=== PATIENT | male | born 1945 | race Caucasian/White ===

== ENCOUNTER 2024-10-14 09:49 | Inpatient (IN) | payer MEDICARE ==
[2024-10-14] VITALS (8 sets, daily range): PULSE 65–78; RESP 16–20; O2SAT 93–100
[~2024-10-14] VITALS: Ht 175.3 cm; Wt 80.4 kg
[~2024-10-14 09:49] MED LIST: CHOLESTEROL PO; [UNRECOGNIZED DRUG - REMARK] PO; [UNRECOGNIZED DRUG - REMARK] PO
[2024-10-14] MEDS ORDERED: 0.9% SODIUM CHLORIDE 10 ML SYRINGE IVP PRN (10:15)
[2024-10-14] MEDS: SODIUM CHLORIDE 0.9% 1,000 ML IV ONE (10:31)
[2024-10-14] MEDS: MethylPREDNISolone SOD SUCC 125 MG/2 ML VIAL IVP ONE (10:32)
[2024-10-14] MEDS: ACETAMINOPHEN 1000 MG/ISO-OSM 100 ML IV ONE (10:32)
[2024-10-14 11:00] LABS: BASOPHILS % (AUTO) 0.3 % (0.0-2.0); EOSINOPHILS % (AUTO) 0.1 % (1.0-6.0); HEMATOCRIT 39.7 % (41-53); HEMOGLOBIN 13.9 g/dL (13.5-17.5); LYMPHOCYTES # (AUTO) 0.2 K/uL (1.0-4.8); LYMPHOCYTES % (AUTO) 23.8 % (22.0-44.0); MEAN CORPUSCULAR HEMOGLOBIN 36.8 pg (26.0-34.0); MEAN CORPUSCULAR HGB CONC 35.1 G/dL (31.0-37.0); MEAN CORPUSCULAR VOLUME 105 fL (80-100); MONOCYTES # (AUTO) 0.1 K/uL (0.1-1.0); MONOCYTES % (AUTO) 6.7 % (2.0-9.0); NEUTROPHILS # (AUTO) 0.7 K/uL (1.8-7.7); NEUTROPHILS % (AUTO) 69.1 % (40.0-70.0); PLATELET COUNT (AUTO) 195 K/uL (150-450); RED BLOOD CELL COUNT(AUTO) 3.79 MIL/uL (4.50-5.90); RED CELL DISTRIBUTION WIDTH 14.6 % (11.5-14.5)
[2024-10-14] MEDS: IPRATROPIUM BROMIDE 0.5 MG/2.5 ML NEB SOLUTION NEB ONE (11:00)
[2024-10-14] MEDS: ALBUTEROL SULFATE 2.5 MG/0.5 ML NEB SOLUTION NEB ONE (11:00)
[2024-10-14 11:01] LABS: ANION GAP 9 mmol/L (8-16); CALCIUM, TOTAL 9.2 mg/dL (8.8-10.5); CARBON DIOXIDE 28 mmol/L (22-29); CHLORIDE 94 mmol/L (98-107); CREATININE 1.89 mg/dL (0.60-1.30); GLOMERULAR FILTR. RATE CALC 35 mL/min (>60); GLUCOSE,RANDOM 87 mg/dL (70-110); POTASSIUM 4.3 mmol/L (3.5-5.1); SODIUM SERUM 131 mmol/L (136-145); UREA NITROGEN, BLOOD 22 mg/dL (7-18)
[2024-10-14 11:06] LABS: ABG A-A DIFF O2 593.8 mmHg (10-20.0); ABG BASE EXCESS -1.5 mmol/L (-2.0-3.0); ABG CARBOXYHEMOGLOBIN 1.1 % (0.5-1.5); ABG HCO3 23.9 mmol/L (21.0-28.0); ABG METHEMOGLOBIN 0.9 % (0.0-1.5); ABG OXYGEN CONTENT 17.7 mL/dL (15.0-23.0); ABG OXYGEN SATURATION 96.9 % (94.0-98.0); ABG PCO2 32 mmHg (32.0-48.0); ABG PH 7.459 (7.350-7.450); ABG TOTAL HEMOGLOBIN 13.2 G/dL (13.5-17.5); ALLEN TEST, BLOOD GAS Positive; O2 DEVICE,BLOOD GAS NON REBREATHER (ROOM AIR); SITE, BLOOD GAS RT RADIAL; SOURCE, BLOOD GAS ARTERIAL; TEMPERATURE, FAHRENHEIT, BG 98.6 FAHREN (96.0-98.6)
[2024-10-14 11:11] LABS: TROPONIN I-HIGH SENSITIVITY 10 ng/L (<76)
[2024-10-14] MEDS: CefTRIAXone 1 GM/DEXTROSE 50 ML IV ONE (11:16)
[2024-10-14 11:21] LABS: LACTIC ACID 2.2 mmol/L (0.4-2.0)
[2024-10-14 11:22] LABS: B-TYPE NATRIURETIC PEPTIDE 39 pg/mL (0-100)
[2024-10-14 11:24] LABS: ALANINE AMINOTRANSFERASE 46 U/L (12-78); ALBUMIN 3.5 g/dL (3.4-5.0); ALKALINE PHOSPHATASE 47 U/L (46-116); ASPARTATE AMINOTRANSFERASE 89 U/L (15-37); BILIRUBIN,TOTAL 1.5 mg/dL (0.1-1.0)
[2024-10-14 11:32] LABS: CREATINE KINASE, TOTAL ONLY 2496 U/L (39-308); RBC MORPHOLOGY COMMENT ABNORMAL RBC MORPH
[2024-10-14] MEDS: AZITHROMYCIN 500 MG/NS 250 ML IV ONE (11:45)
[2024-10-14 12:55] LABS: COVID AG,FIA SOURCE NASAL SWAB
[2024-10-14] MEDS ORDERED: NOREPINEPHRINE 8 MG/0.9 % NACL 250 ML IV ONE (13:01)
[2024-10-14] MEDS: NOREPINEPHRINE 8 MG/0.9 % NACL 250 ML IV PRN (13:20)
[2024-10-14 13:22] LABS: SARS-COV2 (COVID) ANTIGEN,FIA Negative (Negative)
[2024-10-14] MEDS: ACETYLCYSTEINE 10% 100 MG/ML 4 ML NEB SOLUTION NEB SCH (14:23)
[2024-10-14] MEDS: IPRATROPIUM BROMIDE 0.5 MG/2.5 ML NEB SOLUTION NEB SCH (14:23)
[2024-10-14] MEDS: ALBUTEROL SULFATE 2.5 MG/0.5 ML NEB SOLUTION NEB SCH (14:23)
[2024-10-14] MEDS ORDERED: MAGNESIUM HYDROXIDE SUSPENSION 30 ML UDCUP PO PRN (16:00)
[2024-10-14] MEDS ORDERED: ONDANSETRON HCL 4 MG/2 ML VIAL IVP PRN (16:00)
[2024-10-14] MEDS ORDERED: HYDROCODONE/ACETAMINOPHEN 5-325 MG TABLET PO PRN (16:00)
[2024-10-14] MEDS ORDERED: ALBUTEROL SULFATE 2.5 MG/0.5 ML NEB SOLUTION NEB PRN (16:00)
[2024-10-14] MEDS ORDERED: MORPHINE SULFATE 2 MG/ML SYRINGE IVP PRN (16:00)
[2024-10-14] MEDS ORDERED: ZOLPIDEM TARTRATE 5 MG TABLET PO PRN (16:00)
[2024-10-14] MEDS ORDERED: IPRATROPIUM BROMIDE 0.5 MG/2.5 ML NEB SOLUTION NEB PRN (16:00)
[2024-10-14] MEDS: MethylPREDNISolone SOD SUCC 125 MG/2 ML VIAL IVP SCH (17:13)
[2024-10-14] MEDS: HEPARIN SODIUM,PORCINE 5,000 UNITS/ML VIAL SQ SCH (17:14)
[2024-10-14] MEDS ORDERED: ROCURONIUM BROMIDE 10 MG/ML 5 ML VIAL ONE (17:16)
[2024-10-14] MEDS ORDERED: ETOMIDATE 2 MG/ML 10 ML VIAL ONE (17:16)
[2024-10-14] MEDS: PROPOFOL 1000 MG/ISO-OSM 100 ML IV PRN (18:16)
[2024-10-14 19:17] LABS: ABG BASE EXCESS -4.6 mmol/L (-2.0-3.0); ABG CARBOXYHEMOGLOBIN 0.2 % (0.5-1.5); ABG HCO3 21.3 mmol/L (21.0-28.0); ABG OXYGEN CONTENT 17.6 mL/dL (15.0-23.0); ABG OXYGEN SATURATION 99.9 % (94.0-98.0); ABG OXYHEMOGLOBIN 98.7 % (94.0-98.0); ABG PCO2 34 mmHg (32.0-48.0); ABG PH 7.395 (7.350-7.450); ABG TOTAL HEMOGLOBIN 12.3 G/dL (13.5-17.5); PO2, ARTERIAL BG 233.6 mmHg (83.0-108.0); SOURCE, BLOOD GAS ARTERIAL; TEMPERATURE, FAHRENHEIT, BG 98.6 FAHREN (96.0-98.6)
[2024-10-14 19:18] LABS: ALLEN TEST, BLOOD GAS Positive; O2 DEVICE,BLOOD GAS VENTILATOR (ROOM AIR); PEEP,BG 5 cm H2O; SITE, BLOOD GAS LFT RADIAL; SPONTANEOUS VT, BG 463 ml; VT, ABG 450 ml
[2024-10-14] MEDS: DOCUSATE SODIUM 100 MG CAPSULE PO SCH (20:42)
[2024-10-15] VITALS (27 sets, daily range): BP systolic 101–121; BP diastolic 73–93; PULSE 66–98; RESP 16–19; TEMP 97.7–97.8; O2SAT 92–100
[2024-10-15] MEDS: FentaNYL CIT 1000MCG/0.9% NACL 100 ML IV PRN ×2 (05:22→15:48)
[2024-10-15] MEDS ORDERED: PROPOFOL 1000 MG/ISO-OSM 100 ML IV PRN (06:00)
[2024-10-15] MEDS ORDERED: FentaNYL CIT 1000MCG/0.9% NACL 100 ML IV PRN (06:00)
[2024-10-15 06:33] LABS: HEMATOCRIT 35.2 % (41-53); HEMOGLOBIN 12.5 g/dL (13.5-17.5); MEAN CORPUSCULAR HEMOGLOBIN 36.8 pg (26.0-34.0); MEAN CORPUSCULAR HGB CONC 35.5 G/dL (31.0-37.0); MEAN CORPUSCULAR VOLUME 104 fL (80-100); PLATELET COUNT (AUTO) 189 K/uL (150-450); RED BLOOD CELL COUNT(AUTO) 3.39 MIL/uL (4.50-5.90); RED CELL DISTRIBUTION WIDTH 14.3 % (11.5-14.5); WHITE BLOOD COUNT (AUTO) 5.9 K/uL (4.5-11.0)
[2024-10-15 06:42] LABS: CALCIUM, TOTAL 8.4 mg/dL (8.8-10.5); CREATININE 1.59 mg/dL (0.60-1.30); POTASSIUM 3.6 mmol/L (3.5-5.1)
[2024-10-15 08:00] LABS: BAND NEUTROPHILS % (MANUAL) 3 % (0-5); EOSINOPHILS % (MANUAL) 1 % (1-6); LYMPHOCYTES % (MANUAL) 9 % (22-44); MONOCYTES % (MANUAL) 4 % (2-9); RBC MORPHOLOGY COMMENT ABNORMAL RBC MORPH; SEGMENTED NEUTROPHILS % 83 % (40-70); TOTAL CELLS COUNTED 100
[2024-10-15] MEDS: PANTOPRAZOLE SODIUM 40 MG DR TABLET PO SCH (08:52)
[2024-10-15] MEDS: PROPOFOL 1000 MG/ISO-OSM 100 ML IV PRN (12:13)
[2024-10-15] MEDS: LEVOFLOXACIN 750 MG/D5% WATER 150 ML IV SCH (13:34)
[2024-10-15] MEDS ORDERED: SODIUM CHLORIDE 0.9% 250 ML IV ONE (14:00)
[2024-10-16] VITALS (29 sets, daily range): BP systolic 11–136; BP diastolic 76–92; PULSE 62–90; RESP 16–20; TEMP 97.5–98.6; O2SAT 90–96
[2024-10-16 05:42] LABS: CALCIUM, TOTAL 8.7 mg/dL (8.8-10.5); CREATININE 2.02 mg/dL (0.60-1.30); POTASSIUM 4.7 mmol/L (3.5-5.1)
[2024-10-16 05:43] LABS: BASOPHILS % (AUTO) 0.1 % (0.0-2.0); EOSINOPHILS % (AUTO) 0 % (1.0-6.0); HEMATOCRIT 35.8 % (41-53); HEMOGLOBIN 12.3 g/dL (13.5-17.5); LYMPHOCYTES # (AUTO) 0.3 K/uL (1.0-4.8); LYMPHOCYTES % (AUTO) 2.7 % (22.0-44.0); MEAN CORPUSCULAR HEMOGLOBIN 36.4 pg (26.0-34.0); MEAN CORPUSCULAR HGB CONC 34.4 G/dL (31.0-37.0); MEAN CORPUSCULAR VOLUME 106 fL (80-100); MONOCYTES # (AUTO) 0.5 K/uL (0.1-1.0); MONOCYTES % (AUTO) 4.4 % (2.0-9.0); NEUTROPHILS # (AUTO) 10.8 K/uL (1.8-7.7); PLATELET COUNT (AUTO) 202 K/uL (150-450); RED BLOOD CELL COUNT(AUTO) 3.39 MIL/uL (4.50-5.90); RED CELL DISTRIBUTION WIDTH 14.7 % (11.5-14.5); WHITE BLOOD COUNT (AUTO) 11.6 K/uL (4.5-11.0)
[2024-10-16 06:01] LABS: NEUTROPHILS % (AUTO) 92.8 % (40.0-70.0)
[2024-10-16 06:56] LABS: RBC MORPHOLOGY COMMENT ABNORMAL RBC MORPH
[2024-10-16] MEDS: SODIUM CHLORIDE 0.9% 1,000 ML IV ONE (10:55)
[2024-10-16 11:37] LABS: APPEARANCE,URINE CLEAR (CLEAR); BILIRUBIN,URINE NEGATIVE (NEGATIVE); COLOR,URINE YELLOW (YELLOW); GLUCOSE, URINE (UA) NEGATIVE (NEGATIVE); KETONES,URINE NEGATIVE (NEGATIVE); LEUKOCYTE ESTERASE ,URINE NEGATIVE (NEGATIVE); NITRATE,URINE NEGATIVE (NEGATIVE); OCCULT BLOOD,URINE SMALL (NEGATIVE); PH,URINE 5.5 (5.0-8.0); PROTEIN,URINE 30-70 mg/dL (NEGATIVE); SPECIFIC GRAVITIY, URINE 1.021 (1.003-1.030); UROBILINOGEN,URINE <=1.0 mg/dL (<=1.0)
[2024-10-16 11:42] LABS: CREATININE,URINE RANDOM 165.7 mg/dL (30.0-125.0); PROTEIN,URINE RANDOM 71 mg/dL (0-11.9)
[2024-10-16 11:44] LABS: SODIUM,URINE RANDOM < 5 mmol/l (20-110)
[2024-10-16 11:48] LABS: BACTERIA,URINE None Seen /HPF (None Seen); SQUAMOUS EPITHELIAL CELL,UR Few /LPF (None Seen); WBC,URINE 0-2 /HPF (0-5)
[2024-10-16] MEDS ORDERED: SODIUM CHLORIDE 0.9% 500 ML IV ONE (14:55)
[2024-10-16 15:37] LABS: ABG CARBOXYHEMOGLOBIN 0.3 % (0.5-1.5); ABG HCO3 21.3 mmol/L (21.0-28.0); ABG OXYGEN CONTENT 15.7 mL/dL (15.0-23.0); ABG OXYGEN SATURATION 91.7 % (94.0-98.0); ABG OXYHEMOGLOBIN 91.4 % (94.0-98.0); ABG PCO2 41 mmHg (32.0-48.0); ABG PH 7.343 (7.350-7.450); ABG TOTAL HEMOGLOBIN 12.2 G/dL (13.5-17.5); PO2, ARTERIAL BG 64.1 mmHg (83.0-108.0); SOURCE, BLOOD GAS ARTERIAL; TEMPERATURE, FAHRENHEIT, BG 98.4 FAHREN (96.0-98.6)
[2024-10-16 15:38] LABS: ALLEN TEST, BLOOD GAS Positive; O2 DEVICE,BLOOD GAS VENTILATOR (ROOM AIR); PEEP,BG 5 cm H2O; SITE, BLOOD GAS LFT RADIAL; SPONTANEOUS VT, BG 466 ml; VT, ABG 450 ml
[2024-10-16] MEDS: PANTOPRAZOLE SODIUM 40 MG/VIAL IVP SCH (17:02)
[2024-10-16] MEDS: LEVOTHYROXINE SODIUM 100 MCG TABLET NG SCH (17:03)
[2024-10-16 17:51] LABS: FREE T4 (FREE THYROXINE) 0.22 ng/dL (0.76-1.46)
[2024-10-16] MEDS ORDERED: SODIUM CHLORIDE 0.9% 250 ML IV ONE (17:53)
[2024-10-17] VITALS (26 sets, daily range): BP systolic 106–133; BP diastolic 71–91; PULSE 78–107; RESP 16–25; TEMP 97.7–98.4; O2SAT 91–96
[2024-10-17 05:41] LABS: BASOPHILS % (AUTO) 0.1 % (0.0-2.0); EOSINOPHILS % (AUTO) 0 % (1.0-6.0); HEMOGLOBIN 12.2 g/dL (13.5-17.5); LYMPHOCYTES # (AUTO) 0.3 K/uL (1.0-4.8); LYMPHOCYTES % (AUTO) 2.3 % (22.0-44.0); MEAN CORPUSCULAR HEMOGLOBIN 36.5 pg (26.0-34.0); MEAN CORPUSCULAR HGB CONC 34.8 G/dL (31.0-37.0); MEAN CORPUSCULAR VOLUME 105 fL (80-100); MONOCYTES # (AUTO) 0.4 K/uL (0.1-1.0); NEUTROPHILS # (AUTO) 13.3 K/uL (1.8-7.7); PLATELET COUNT (AUTO) 233 K/uL (150-450); RED BLOOD CELL COUNT(AUTO) 3.33 MIL/uL (4.50-5.90); RED CELL DISTRIBUTION WIDTH 14.8 % (11.5-14.5); WHITE BLOOD COUNT (AUTO) 14.1 K/uL (4.5-11.0)
[2024-10-17 05:43] LABS: CALCIUM, TOTAL 8.1 mg/dL (8.8-10.5); CREATININE 2.13 mg/dL (0.60-1.30); POTASSIUM 4.8 mmol/L (3.5-5.1)
[2024-10-17 05:49] LABS: NEUTROPHILS % (AUTO) 94.6 % (40.0-70.0)
[2024-10-17] MEDS: LEVOTHYROXINE SODIUM 100 MCG VIAL IVP SCH (05:51)
[2024-10-17] MEDS ORDERED: SODIUM CHLORIDE 0.9% 250 ML IV ONE (17:02)
[2024-10-18] VITALS (21 sets, daily range): BP systolic 111–156; BP diastolic 72–90; PULSE 65–99; RESP 16–25; TEMP 96.7–99; O2SAT 92–99
[2024-10-18 06:06] LABS: BASOPHILS % (AUTO) 0.1 % (0.0-2.0); EOSINOPHILS % (AUTO) 0 % (1.0-6.0); HEMATOCRIT 33.6 % (41-53); HEMOGLOBIN 11.7 g/dL (13.5-17.5); LYMPHOCYTES # (AUTO) 0.3 K/uL (1.0-4.8); LYMPHOCYTES % (AUTO) 2.9 % (22.0-44.0); MEAN CORPUSCULAR HEMOGLOBIN 36.7 pg (26.0-34.0); MEAN CORPUSCULAR HGB CONC 34.8 G/dL (31.0-37.0); MEAN CORPUSCULAR VOLUME 106 fL (80-100); MONOCYTES # (AUTO) 0.4 K/uL (0.1-1.0); MONOCYTES % (AUTO) 4.2 % (2.0-9.0); NEUTROPHILS # (AUTO) 9.5 K/uL (1.8-7.7); PLATELET COUNT (AUTO) 207 K/uL (150-450); RED BLOOD CELL COUNT(AUTO) 3.18 MIL/uL (4.50-5.90); RED CELL DISTRIBUTION WIDTH 14.6 % (11.5-14.5); WHITE BLOOD COUNT (AUTO) 10.2 K/uL (4.5-11.0)
[2024-10-18 06:18] LABS: CALCIUM, TOTAL 8.2 mg/dL (8.8-10.5); CREATININE 1.69 mg/dL (0.60-1.30); MAGNESIUM 2.5 mg/dL (1.80-2.40); PHOSPHORUS 3.4 mg/dL (2.5-4.9); POTASSIUM 4.7 mmol/L (3.5-5.1)
[2024-10-18 06:29] LABS: NEUTROPHILS % (AUTO) 92.8 % (40.0-70.0)
[2024-10-18 12:42] LABS: ABG BASE EXCESS -1.3 mmol/L (-2.0-3.0); ABG CARBOXYHEMOGLOBIN 0.4 % (0.5-1.5); ABG HCO3 23.9 mmol/L (21.0-28.0); ABG OXYGEN CONTENT 17.1 mL/dL (15.0-23.0); ABG OXYGEN SATURATION 94.8 % (94.0-98.0); ABG OXYHEMOGLOBIN 94.4 % (94.0-98.0); ABG PCO2 33 mmHg (32.0-48.0); ABG TOTAL HEMOGLOBIN 12.9 G/dL (13.5-17.5); PO2, ARTERIAL BG 69.6 mmHg (83.0-108.0); SOURCE, BLOOD GAS ARTERIAL; TEMPERATURE, FAHRENHEIT, BG 98.7 FAHREN (96.0-98.6)
[2024-10-18 12:44] LABS: SITE, BLOOD GAS ARTERIAL LINE
[2024-10-18 12:45] LABS: ABG A-A DIFF O2 177.2 mmHg (10-20.0); CPAP, BG 5 cm H2O; O2 DEVICE,BLOOD GAS VENTILATOR (ROOM AIR); PRESSURE SUPPORT, BG 8 cm H2O; SPONTANEOUS VT, BG 484 ml; VENT MODE, BG CPAP (ROOM AIR); VT, ABG 484 ml
[2024-10-19] VITALS (25 sets, daily range): BP systolic 98–182; BP diastolic 61–100; PULSE 55–89; RESP 11–25; TEMP 97.5–99.3; O2SAT 93–98
[2024-10-19] MEDS: ETHYL ALCOHOL 62% ANTISEPTIC NASAL SANITIZER 0.6 ML AMPUL NASAL SCH (01:11)
[2024-10-19 06:12] LABS: CALCIUM, TOTAL 8.8 mg/dL (8.8-10.5); CREATININE 1.58 mg/dL (0.60-1.30); MAGNESIUM 2.8 mg/dL (1.80-2.40); PHOSPHORUS 3.4 mg/dL (2.5-4.9); POTASSIUM 5.6 mmol/L (3.5-5.1)
[2024-10-19] MEDS ORDERED: HydrALAZINE HCL 20 MG/ML VIAL IVP PRN (09:45)
[2024-10-19] MEDS: SODIUM POLYSTYRENE SULFONATE 15 GM/60 ML SUSPENSION BOTTLE PO ONE (10:30)
[2024-10-20] VITALS (26 sets, daily range): BP systolic 77–149; BP diastolic 47–97; PULSE 53–92; RESP 14–27; TEMP 98.7–99.9; O2SAT 91–100
[2024-10-20 06:32] LABS: CALCIUM, TOTAL 9.6 mg/dL (8.8-10.5); CREATININE 1.5 mg/dL (0.60-1.30); MAGNESIUM 2.7 mg/dL (1.80-2.40); POTASSIUM 5.1 mmol/L (3.5-5.1)
[2024-10-20 07:18] LABS: BASOPHILS % (AUTO) 0.1 % (0.0-2.0); EOSINOPHILS % (AUTO) 0.1 % (1.0-6.0); HEMATOCRIT 41.2 % (41-53); HEMOGLOBIN 13.9 g/dL (13.5-17.5); LYMPHOCYTES # (AUTO) 0.4 K/uL (1.0-4.8); LYMPHOCYTES % (AUTO) 3.6 % (22.0-44.0); MEAN CORPUSCULAR HEMOGLOBIN 36.2 pg (26.0-34.0); MEAN CORPUSCULAR HGB CONC 33.6 G/dL (31.0-37.0); MEAN CORPUSCULAR VOLUME 108 fL (80-100); MONOCYTES # (AUTO) 0.3 K/uL (0.1-1.0); MONOCYTES % (AUTO) 3.2 % (2.0-9.0); NEUTROPHILS # (AUTO) 9.1 K/uL (1.8-7.7); PLATELET COUNT (AUTO) 141 K/uL (150-450); RED BLOOD CELL COUNT(AUTO) 3.82 MIL/uL (4.50-5.90); RED CELL DISTRIBUTION WIDTH 15.2 % (11.5-14.5); WHITE BLOOD COUNT (AUTO) 9.8 K/uL (4.5-11.0)
[2024-10-20 09:06] LABS: RBC MORPHOLOGY COMMENT ABNORMAL RBC MORPH
[2024-10-20] MEDS: ACETAMINOPHEN 325 MG TABLET PO PRN (10:31)
[2024-10-20 10:53] LABS: ABG BASE EXCESS 3.8 mmol/L (-2.0-3.0); ABG CARBOXYHEMOGLOBIN 0.5 % (0.5-1.5); ABG HCO3 28.1 mmol/L (21.0-28.0); ABG METHEMOGLOBIN 0.1 % (0.0-1.5); ABG OXYGEN CONTENT 17.2 mL/dL (15.0-23.0); ABG OXYGEN SATURATION 91.1 % (94.0-98.0); ABG OXYHEMOGLOBIN 90.6 % (94.0-98.0); ABG PCO2 33 mmHg (32.0-48.0); ABG PH 7.523 (7.350-7.450); ABG TOTAL HEMOGLOBIN 13.5 G/dL (13.5-17.5); ALLEN TEST, BLOOD GAS Positive; O2 DEVICE,BLOOD GAS VENTILATOR (ROOM AIR); PO2, ARTERIAL BG 58.3 mmHg (83.0-108.0); SITE, BLOOD GAS LFT RADIAL; SOURCE, BLOOD GAS ARTERIAL; TEMPERATURE, FAHRENHEIT, BG 99.8 FAHREN (96.0-98.6); VENT MODE, BG Press. Support Vent. (ROOM AIR)
[2024-10-20 10:54] LABS: PEEP,BG 5 cm H2O; PRESSURE SUPPORT, BG 0 cm H2O; SPONTANEOUS VT, BG 822 ml
[2024-10-20] MEDS: DEXMEDETOMIDINE 400 MCG/NS 100 ML IV PRN (11:25)
[2024-10-20 13:35] LABS: APPEARANCE,URINE CLEAR (CLEAR); BILIRUBIN,URINE NEGATIVE (NEGATIVE); COLOR,URINE YELLOW (YELLOW); GLUCOSE, URINE (UA) NEGATIVE (NEGATIVE); KETONES,URINE NEGATIVE (NEGATIVE); LEUKOCYTE ESTERASE ,URINE NEGATIVE (NEGATIVE); NITRATE,URINE NEGATIVE (NEGATIVE); OCCULT BLOOD,URINE SMALL (NEGATIVE); PROTEIN,URINE 30-70 mg/dL (NEGATIVE); UROBILINOGEN,URINE <=1.0 mg/dL (<=1.0)
[2024-10-20 13:52] LABS: BACTERIA,URINE None Seen /HPF (None Seen); WBC,URINE 0-2 /HPF (0-5)
[2024-10-20 15:20] LABS: TROPONIN I-HIGH SENSITIVITY 19 ng/L (<76)
[2024-10-20] MEDS: MethylPREDNISolone SOD SUCC 40 MG/ML VIAL IVP SCH (17:52)
[2024-10-21] VITALS (24 sets, daily range): BP systolic 80–125; BP diastolic 51–86; PULSE 57–88; RESP 13–24; TEMP 99–100; O2SAT 92–97
[2024-10-21 06:15] LABS: BASOPHILS % (AUTO) 0.1 % (0.0-2.0); EOSINOPHILS % (AUTO) 0 % (1.0-6.0); HEMATOCRIT 38.7 % (41-53); HEMOGLOBIN 13.3 g/dL (13.5-17.5); LYMPHOCYTES # (AUTO) 0.9 K/uL (1.0-4.8); LYMPHOCYTES % (AUTO) 8.9 % (22.0-44.0); MEAN CORPUSCULAR HGB CONC 34.2 G/dL (31.0-37.0); MEAN CORPUSCULAR VOLUME 105 fL (80-100); MONOCYTES # (AUTO) 0.4 K/uL (0.1-1.0); MONOCYTES % (AUTO) 3.8 % (2.0-9.0); PLATELET COUNT (AUTO) 206 K/uL (150-450); RED BLOOD CELL COUNT(AUTO) 3.69 MIL/uL (4.50-5.90); WHITE BLOOD COUNT (AUTO) 10.3 K/uL (4.5-11.0)
[2024-10-21 06:22] LABS: NEUTROPHILS % (AUTO) 87.2 % (40.0-70.0)
[2024-10-21 06:27] LABS: CALCIUM, TOTAL 9.1 mg/dL (8.8-10.5); CREATININE 1.42 mg/dL (0.60-1.30); POTASSIUM 4.4 mmol/L (3.5-5.1)
[2024-10-21 08:15] LABS: MAGNESIUM 2.4 mg/dL (1.80-2.40); PHOSPHORUS 3.1 mg/dL (2.5-4.9)
[2024-10-21 13:15] LABS: ABG BASE EXCESS 1.6 mmol/L (-2.0-3.0); ABG CARBOXYHEMOGLOBIN 0.4 % (0.5-1.5); ABG HCO3 26.6 mmol/L (21.0-28.0); ABG METHEMOGLOBIN 0.3 % (0.0-1.5); ABG OXYGEN CONTENT 16.9 mL/dL (15.0-23.0); ABG OXYHEMOGLOBIN 93.3 % (94.0-98.0); ABG PCO2 29 mmHg (32.0-48.0); ABG PH 7.543 (7.350-7.450); ABG TOTAL HEMOGLOBIN 12.9 G/dL (13.5-17.5); PO2, ARTERIAL BG 67.2 mmHg (83.0-108.0); SOURCE, BLOOD GAS ARTERIAL; TEMPERATURE, FAHRENHEIT, BG 99.6 FAHREN (96.0-98.6)
[2024-10-21 13:16] LABS: SITE, BLOOD GAS LFT RADIAL
[2024-10-21 13:17] LABS: ABG A-A DIFF O2 184.5 mmHg (10-20.0); ALLEN TEST, BLOOD GAS Positive; O2 DEVICE,BLOOD GAS VENTILATOR (ROOM AIR); PEEP,BG 0 cm H2O; PRESSURE SUPPORT, BG 8 cm H2O; SPONTANEOUS VT, BG 739 ml; VENT MODE, BG SPONTANEOUS (ROOM AIR)
[2024-10-21] MEDS: MethylPREDNISolone SOD SUCC 40 MG/ML VIAL IVP SCH (21:33)
[2024-10-22] VITALS (24 sets, daily range): BP systolic 85–129; BP diastolic 54–76; PULSE 54–91; RESP 15–24; TEMP 99.1–99.9; O2SAT 92–98
[2024-10-22] MEDS ORDERED: SODIUM CHLORIDE 0.9% 250 ML IV ONE (00:11)
[2024-10-22 06:16] LABS: BASOPHILS % (AUTO) 0.1 % (0.0-2.0); EOSINOPHILS % (AUTO) 0 % (1.0-6.0); HEMATOCRIT 34.8 % (41-53); HEMOGLOBIN 11.9 g/dL (13.5-17.5); LYMPHOCYTES # (AUTO) 0.8 K/uL (1.0-4.8); LYMPHOCYTES % (AUTO) 7.2 % (22.0-44.0); MEAN CORPUSCULAR HEMOGLOBIN 35.6 pg (26.0-34.0); MEAN CORPUSCULAR HGB CONC 34.1 G/dL (31.0-37.0); MEAN CORPUSCULAR VOLUME 104 fL (80-100); MONOCYTES # (AUTO) 0.5 K/uL (0.1-1.0); MONOCYTES % (AUTO) 4.6 % (2.0-9.0); NEUTROPHILS # (AUTO) 9.2 K/uL (1.8-7.7); PLATELET COUNT (AUTO) 201 K/uL (150-450); RED BLOOD CELL COUNT(AUTO) 3.34 MIL/uL (4.50-5.90); RED CELL DISTRIBUTION WIDTH 15.1 % (11.5-14.5); WHITE BLOOD COUNT (AUTO) 10.5 K/uL (4.5-11.0)
[2024-10-22 06:20] LABS: CALCIUM, TOTAL 9.2 mg/dL (8.8-10.5); CREATININE 1.28 mg/dL (0.60-1.30); MAGNESIUM 2.1 mg/dL (1.80-2.40); NEUTROPHILS % (AUTO) 88.1 % (40.0-70.0); PHOSPHORUS 3.8 mg/dL (2.5-4.9); POTASSIUM 4.5 mmol/L (3.5-5.1)
[2024-10-22] MEDS: DOCUSATE SODIUM 100 MG/10 ML LIQUID UDCUP NG PRN (08:15)
[2024-10-22 08:29] LABS: RBC MORPHOLOGY COMMENT ABNORMAL RBC MORPH
[2024-10-23] VITALS (22 sets, daily range): BP systolic 118–150; BP diastolic 67–86; PULSE 53–88; RESP 14–23; TEMP 98.6–100; O2SAT 91–98
[2024-10-23 06:11] LABS: BASOPHILS % (AUTO) 0.2 % (0.0-2.0); EOSINOPHILS % (AUTO) 0.4 % (1.0-6.0); HEMATOCRIT 32.1 % (41-53); HEMOGLOBIN 10.9 g/dL (13.5-17.5); LYMPHOCYTES # (AUTO) 0.6 K/uL (1.0-4.8); LYMPHOCYTES % (AUTO) 5.5 % (22.0-44.0); MEAN CORPUSCULAR HEMOGLOBIN 35.6 pg (26.0-34.0); MEAN CORPUSCULAR HGB CONC 33.9 G/dL (31.0-37.0); MEAN CORPUSCULAR VOLUME 105 fL (80-100); MONOCYTES # (AUTO) 0.5 K/uL (0.1-1.0); MONOCYTES % (AUTO) 4.3 % (2.0-9.0); NEUTROPHILS # (AUTO) 10.1 K/uL (1.8-7.7); PLATELET COUNT (AUTO) 189 K/uL (150-450); RED BLOOD CELL COUNT(AUTO) 3.06 MIL/uL (4.50-5.90); RED CELL DISTRIBUTION WIDTH 15.1 % (11.5-14.5); WHITE BLOOD COUNT (AUTO) 11.2 K/uL (4.5-11.0)
[2024-10-23 06:22] LABS: NEUTROPHILS % (AUTO) 89.6 % (40.0-70.0)
[2024-10-23 06:35] LABS: CALCIUM, TOTAL 9.1 mg/dL (8.8-10.5); CREATININE 1.18 mg/dL (0.60-1.30); MAGNESIUM 2.1 mg/dL (1.80-2.40); PHOSPHORUS 3.8 mg/dL (2.5-4.9); POTASSIUM 4.5 mmol/L (3.5-5.1)
[2024-10-23 06:50] LABS: RBC MORPHOLOGY COMMENT ABNORMAL RBC MORPH
[2024-10-23 15:20] LABS: ABG A-A DIFF O2 173.6 mmHg (10-20.0); ABG BASE EXCESS 2.6 mmol/L (-2.0-3.0); ABG CARBOXYHEMOGLOBIN 0.3 % (0.5-1.5); ABG HCO3 27.1 mmol/L (21.0-28.0); ABG METHEMOGLOBIN 0.1 % (0.0-1.5); ABG OXYGEN CONTENT 16.3 mL/dL (15.0-23.0); ABG OXYGEN SATURATION 94.4 % (94.0-98.0); ABG PCO2 32 mmHg (32.0-48.0); ABG PH 7.514 (7.350-7.450); ABG TOTAL HEMOGLOBIN 12.3 G/dL (13.5-17.5); ALLEN TEST, BLOOD GAS Positive; CPAP, BG 0 cm H2O; O2 DEVICE,BLOOD GAS VENTILATOR (ROOM AIR); PO2, ARTERIAL BG 73.6 mmHg (83.0-108.0); PRESSURE SUPPORT, BG 8 cm H2O; SITE, BLOOD GAS RT RADIAL; SOURCE, BLOOD GAS ARTERIAL; SPONTANEOUS VT, BG 600 ml; TEMPERATURE, FAHRENHEIT, BG 99.9 FAHREN (96.0-98.6); VENT MODE, BG CPAP (ROOM AIR)
[2024-10-24] VITALS (18 sets, daily range): BP systolic 104–155; BP diastolic 61–89; PULSE 60–82; RESP 11–20; TEMP 97.7–99.3; O2SAT 89–100
[2024-10-24 08:36] LABS: BASOPHILS % (AUTO) 0.4 % (0.0-2.0); EOSINOPHILS % (AUTO) 0.7 % (1.0-6.0); HEMATOCRIT 38.8 % (41-53); HEMOGLOBIN 12.8 g/dL (13.5-17.5); LYMPHOCYTES # (AUTO) 1.1 K/uL (1.0-4.8); LYMPHOCYTES % (AUTO) 9.6 % (22.0-44.0); MEAN CORPUSCULAR HEMOGLOBIN 35.2 pg (26.0-34.0); MEAN CORPUSCULAR VOLUME 107 fL (80-100); MONOCYTES # (AUTO) 0.7 K/uL (0.1-1.0); MONOCYTES % (AUTO) 5.8 % (2.0-9.0); NEUTROPHILS # (AUTO) 9.9 K/uL (1.8-7.7); NEUTROPHILS % (AUTO) 83.5 % (40.0-70.0); PLATELET COUNT (AUTO) 201 K/uL (150-450); RED BLOOD CELL COUNT(AUTO) 3.64 MIL/uL (4.50-5.90); RED CELL DISTRIBUTION WIDTH 15.1 % (11.5-14.5); WHITE BLOOD COUNT (AUTO) 11.8 K/uL (4.5-11.0)
[2024-10-24 08:45] LABS: CALCIUM, TOTAL 9.1 mg/dL (8.8-10.5); CREATININE 1.23 mg/dL (0.60-1.30); POTASSIUM 4.7 mmol/L (3.5-5.1)
[2024-10-25] VITALS (16 sets, daily range): BP systolic 112–144; BP diastolic 64–90; PULSE 55–82; RESP 12–20; TEMP 97.4–98.9; O2SAT 93–100
[2024-10-25 07:13] LABS: BASOPHILS % (AUTO) 0.1 % (0.0-2.0); EOSINOPHILS % (AUTO) 0.2 % (1.0-6.0); HEMATOCRIT 43.2 % (41-53); HEMOGLOBIN 14.4 g/dL (13.5-17.5); LYMPHOCYTES # (AUTO) 0.7 K/uL (1.0-4.8); LYMPHOCYTES % (AUTO) 9.5 % (22.0-44.0); MEAN CORPUSCULAR HEMOGLOBIN 35.9 pg (26.0-34.0); MEAN CORPUSCULAR HGB CONC 33.3 G/dL (31.0-37.0); MEAN CORPUSCULAR VOLUME 108 fL (80-100); MONOCYTES # (AUTO) 0.4 K/uL (0.1-1.0); MONOCYTES % (AUTO) 5.8 % (2.0-9.0); NEUTROPHILS # (AUTO) 6.3 K/uL (1.8-7.7); NEUTROPHILS % (AUTO) 84.4 % (40.0-70.0); PLATELET COUNT (AUTO) 184 K/uL (150-450); RED BLOOD CELL COUNT(AUTO) 4.01 MIL/uL (4.50-5.90); RED CELL DISTRIBUTION WIDTH 15.6 % (11.5-14.5); WHITE BLOOD COUNT (AUTO) 7.5 K/uL (4.5-11.0)
[2024-10-25 07:31] LABS: CREATININE 1.25 mg/dL (0.60-1.30)
[2024-10-25 08:47] LABS: RBC MORPHOLOGY COMMENT ABNORMAL RBC MORPH
[2024-10-25] MEDS ORDERED: SODIUM CHLORIDE 0.9% 250 ML IV ONE (12:58)
[2024-10-26] VITALS (14 sets, daily range): BP systolic 121–135; BP diastolic 76–89; PULSE 54–77; RESP 18–20; TEMP 97.8–98.9; O2SAT 93–100
[2024-10-26] MEDS: DEXTROSE 5%-0.45% SODIUM CHL 1,000 ML IV SCH (11:16)
[2024-10-27] VITALS (14 sets, daily range): BP systolic 110–131; BP diastolic 66–75; PULSE 48–124; RESP 17–20; TEMP 97.4–98.6; O2SAT 94–99
[2024-10-27] MEDS: MethylPREDNISolone SOD SUCC 40 MG/ML VIAL IVP SCH (09:00)
[2024-10-27] MEDS ORDERED: PredniSONE 20 MG TABLET PO SCH (09:00)
[2024-10-27] MEDS: SCOPOLAMINE HYDROBROMIDE 1 MG/72 HOUR PATCH TD SCH (13:35)
[2024-10-27] MEDS: BISACODYL 10 MG RECTAL RECTAL SUPPOSITORY PR PRN (13:47)
[2024-10-27] MEDS: MINERAL OIL 133 ML ENEMA PR ONE (16:43)
== END 2024-10-27 19:45 | DRG 870 ==
LOC: EMS 10:34 → EDH 14:45 → ICU 10-15 09:30 → 5S 10-25 01:15
PROVIDERS: ADMIT Internal Medicine; ATTEND Internal Medicine
PROC: 5A1955Z Respiratory Ventilation, Greater than 96 Consecutive Hours (ICD-10-PCS; principal; 2024-10-14)
PROC: 0BH17EZ Insertion of Endotracheal Airway into Trachea, Via Natural or Artificial Opening (ICD-10-PCS; 2024-10-14)
PROC: 05H933Z Insertion of Infusion Device into Right Brachial Vein, Percutaneous Approach (ICD-10-PCS; 2024-10-22)
DX: A41.9 Sepsis, unspecified organism (principal); E43 Unspecified severe protein-calorie malnutrition; N17.0 Acute kidney failure with tubular necrosis; J96.01 Acute respiratory failure with hypoxia; J15.69 Pneumonia due to other Gram-negative bacteria; G92.8 Other toxic encephalopathy; E87.1 Hypo-osmolality and hyponatremia; M62.82 Rhabdomyolysis; E87.29 Other acidosis; I31.39 Other pericardial effusion (noninflammatory); J44.0 Chronic obstructive pulmonary disease with (acute) lower respiratory infection; J98.11 Atelectasis; Z20.822 Contact with and (suspected) exposure to COVID-19; E78.5 Hyperlipidemia, unspecified; I73.9 Peripheral vascular disease, unspecified; E87.5 Hyperkalemia; K44.9 Diaphragmatic hernia without obstruction or gangrene; N18.9 Chronic kidney disease, unspecified; R80.9 Proteinuria, unspecified; I12.9 Hypertensive chronic kidney disease with stage 1 through stage 4 chronic kidney disease, or unspecified chronic kidney disease; E03.9 Hypothyroidism, unspecified; F20.9 Schizophrenia, unspecified; K59.00 Constipation, unspecified; Z87.891 Personal history of nicotine dependence; Z68.26 Body mass index [BMI] 26.0-26.9, adult
CPT/HCPCS: 36245; 36569; 36600; 70450; 71045; 71250; 74230; 76770; 76937; 80048; 80076; 81001; 82550; 82570; 82805; 83605; 83735; 83880; 84100; 84132; 84145; 84156; 84300; 84439; 84443; 84484; 85025; 87040; 87070; 87081; 87205; 92526; 92610; 92611; 93005; 94002; 94003; 94640; 94667; 94668; 94669; 97163; 97167; 97530; 97535; 99291; G0238; J0131; J0456; J0696; J1644; J1956; J2470; J2704; J2919; J3010; J3490; J7030; J7040; J7050; 36415-L1; 36415-TC; J7613